=== PATIENT | male | born 1970 | race Caucasian/White ===

== ENCOUNTER 2025-07-08 20:06 | Emergency (ER) | payer MEDICAID, OTHER, SELFPAY ==
[2025-07-08 20:11] VITALS: BP 161/103; PULSE 84; RESP 85; TEMP 36.4; O2SAT 95; BMI 36.6
--- NOTE | 2025-07-08 22:34 | ED_ITS ---
HPI - General Adult General Chief complaint: Dental/Oral Stated complaint: gum pain Time Seen by Provider: 07/08/25 22:04 Source: patient, RN notes reviewed and old records reviewed Mode of arrival: ambulatory Limitations: no limitations History of Present Illness ED Provider: Kendy WOOD narrative: 54-year-old male presents for evaluation of dental pain, facial pain. He believes he has a dental infection in his requesting antibiotics. He reports he has had these issues in the past. He has been taking [id number] medication and performing saltwater gargles without any improvement in his pain. Denies any difficulty swallowing. He has pain in his worse with chewing Related Data Previous Rx's ?Medication ?Instructions ?Recorded amoxicillin 875 mg-potassium 1 tab PO Q12H #14 tabs clavulanate 125 mg tablet oxycodone 5 mg tablet 5 mg PO Q8H PRN severe pain (scale 07/08/25 score 7-10) #6 tabs Allergies Allergy/AdvReac Type Severity Reaction Status Date / Time No Known Allergies Allergy Verified 07/08/25 20:13 Review of Systems Constitutional: Constitutional: Denies body ache(s), Denies chills, Denies fever(s) and Denies headache(s) Eyes: Eyes: Denies blurry vision ENT: Reports facial pain, Denies headache(s), Reports odynophagia and Denies throat swelling Cardiovascular: Cardiovascular: Denies chest pain and Denies dyspnea on exertion Respiratory: Respiratory: Denies cough and Denies dyspnea on exertion Gastrointestinal: Gastrointestinal: Denies abdominal pain, Denies nausea and Reports odynophagia Musculoskeletal: Musculoskeletal: Denies back pain Integumentary/Breasts: Skin/Breast: Denies rash Neurologic: Denies headache(s) Psychiatric: Psychiatric: Denies anxiety Allergic/Immunologic: Allergic/Immunologic: Denies throat swelling PMFSH Social History Social History Advance Directives: No Physical Exam ED Vital Signs: Vital Signs - 24 hr 07/08/25 20:11 07/08/25 22:50 Temperature 97.6 F 97.6 F Pulse Rate 84 84 Respiratory Rate 85 H 85 H Blood Pressure 161/103 H 161/103 H Pulse Oximetry 95 95 Oxygen Delivery Method Room Air Room Air BMI result Body Mass Index 36.6 Const General: healthy appearing, comfortable, no acute distress, alert and awake Nutritional Appearance: well nourished Orientation/consciousness: patient oriented x3 HENMT Other: Multiple dental caries, there was no obvious dental abscess. Minimal gingival edema to the lower gingiva bilaterally. No significant retropharyngeal edema. No tonsillar hypertrophy or exudates. No anterior neck edema, no tracheal deviation Head: Yes normocephalic and Yes atraumatic Eyes Eyelids: Yes eyelids normal Conjunctivae: conjunctivae normal Sclerae: sclerae normal Corneas: corneas normal Pupils: Equal, round and reactive pupils present EOM: EOMs intact bilaterally Neck Neck: Yes full ROM Resp Effort & Inspection: normal respiratory effort, able to speak in complete sentences and not labored Skin General skin exam: elasticity normal Neuro General: patient oriented x3 Cranial nerves: Yes Equal, round and reactive pupils present and Yes Bilaterally intact EOM present Cognition (Neuro): normal cognition Extrem Other: Moving all extremities well without any obvious deformities Medications Administered Discontinued Medications Generic Name Dose Route Start Last Admin Trade Name Freq PRN Reason Stop Dose Admin Amoxicillin/Clavulanate Potassium 875 mg 07/08/25 22:33 07/08/25 22:46 Amoxicillin/Potassium Clav 875 Mg Tablet PO 07/08/25 22:34 875 mg ONCE ONE Administration Oxycodone HCl 5 mg 07/08/25 22:33 07/08/25 22:46 Oxycodone Hcl Immed Release 5 Mg Tablet PO 07/08/25 22:34 5 mg ONCE ONE Administration Medical Decision Making Medical Decision Making [facility] Narrative: The patient appears to have a mild gingivitis or dental caries. We will treat with a 1 week course of Augmentin. Patient encouraged to follow up with a dentist for definitive treatment due to his multiple dental caries. There was no evidence of abscess Differential Diagnosis Differential Diagnoses: The differential diagnosis associated with the presentation includes Gingivitis Dental caries Dental abscess Dental pain Facial pain Discharge Plan Discharge Clinical Impression: Dental caries, Toothache Patient Disposition: Home, Self-Care Instructions: Mouth Care (ED) Additional Instructions: You appear to have a minor dental infection Take the Augmentin twice daily for 1 week. You may use Chloraseptic spray to help with your pain. I do recommend that you follow up with a dentist as soon as possible Use Motrin/Tylenol for pain Use oxycodone for more severe, breakthrough pain This may make you drowsy, do not drink alcohol or drive after taking it Prescriptions: New amoxicillin-pot clavulanate 875-125 mg tablet 1 tab PO Q12H Qty: 14 0RF oxycodone 5 mg tablet 5 mg PO Q8H PRN (Reason: severe pain (scale score 7-10)) Qty: 6 0RF Rx Instructions: Partial Fill upon patient request. Interventions: ED Discharge Assessment Last Done: 07/08/25 22:50 Discharge Date/Time: 07/08/25 22:52 Print Language: [place] Island[place]
[2025-07-08] MEDS: oxyCODONE HCl Immed Release 5 MG TABLET PO (22:46)
[2025-07-08 22:50] VITALS: BP 161/103; PULSE 84; RESP 85; TEMP 36.4; O2SAT 95
== END 2025-07-08 22:52 | disposition home or self-care (01) ==
PROVIDERS: Emergency Provider Emergency Medicine
DX: K02.9 Dental caries, unspecified (principal)
CPT/HCPCS: 99283